=== PATIENT | female | born 2000 | race Caucasian/White ===

== ENCOUNTER 2022-05-28 13:40 | Outpatient (CLI) | payer OTHER ==
[~2022-05-28] VITALS: Ht 170.2 cm; Wt 152.7 kg
[2022-05-28] MEDS ORDERED: PRENTAB9 PO (13:54)
[2022-05-28 14:03] VITALS: BP 129/75
== END 2022-05-28 15:30 | disposition home or self-care (01) ==
LOC: M LDO 13:40
PROVIDERS: ATTEND Registered Nurse
DX: O36.8130 Decreased fetal movements, third trimester, not applicable or unspecified (principal); Z3A.38 38 weeks gestation of pregnancy; Z88.1 Allergy status to other antibiotic agents
CPT/HCPCS: 59025; 76815; 76819; 76820; G0378; G0463

== ENCOUNTER 2022-06-03 15:18 | Outpatient (CLI) | payer OTHER ==
[~2022-06-03] VITALS: Ht 170.2 cm; Wt 153.4 kg
[~2022-06-03 15:18] MED LIST: PRENTAB9 PO
[2022-06-03] MEDS ORDERED: ACET-683 PO (15:44)
[2022-06-03 15:52] VITALS: BP 141/80
[2022-06-03] MEDS ORDERED: METOCLOPRAMIDE 10MG TAB PO ONE (16:35)
[2022-06-03] MEDS ORDERED: diphenhydrAMINE 25MG CAP PO ONE ×2 (16:35→18:55)
[2022-06-03 16:53] VITALS: BP 138/80
[2022-06-03 16:55] LABS: MEAN CORPUSCULAR HEMOGLOBIN 30.7 pg (27.0-33.0); MEAN CORPUSCULAR HGB CONC 33.3 g/dl (32.0-36.5); MEAN CORPUSCULAR VOLUME 92.1 fl (80.0-96.0); PLATELET COUNT, AUTOMATED 282 10^3/uL (150-450); RED BLOOD COUNT 3.91 10^6/uL (4.00-5.40); WHITE BLOOD COUNT 11.6 10^3/uL (4.0-10.0)
[2022-06-03 17:44] LABS: ALBUMIN 2.4 G/DL (3.2-5.2); ALT/SGPT 12 U/L (7.0-40); ALT/SGPT 13 U/L (7.0-40); BILIRUBIN,TOTAL 0.3 MG/DL (0.3-1.2); BLOOD UREA NITROGEN 8 MG/DL (9-23); CALCIUM LEVEL 8.5 MG/DL (8.5-10.1); CARBON DIOXIDE LEVEL 24 MMOL/L (20-31); CHLORIDE LEVEL 103 MMOL/L (98-107); GLUCOSE, FASTING 84 MG/DL (60-100); LDH LACTATE DEHYDROGENASE 171 U/L (120-246); POTASSIUM SERUM 4.1 MMOL/L (3.5-5.1); SODIUM LEVEL 136 MMOL/L (136-145); TOTAL PROTEIN 5.9 G/DL (5.7-8.2); URIC ACID 4.5 MG/DL (3.1-7.8)
[2022-06-03 18:01] VITALS: BP 125/72
[2022-06-03 18:08] LABS: APPEARANCE, URINE MANUAL CLEAR (CLEAR); BILIRUBIN, URINE MANUAL NEGATIVE (NEGATIVE); BLOOD URINE MANUAL TRACE (NEGATIVE); COLOR, URINE MANUAL YELLOW (YELLOW); GLUCOSE, URINE (UA) MANUAL NEGATIVE (NEGATIVE); KETONE, URINE MANUAL NEGATIVE (NEGATIVE); LEUKOCYTE ESTERASE, URINE MAN TRACE (NEGATIVE); NITRITE, URINE MANUAL NEGATIVE (NEGATIVE); PROTEIN, URINE MANUAL TRACE mg/dL (NEGATIVE); SPECIFIC GRAVITY,URINE MANUAL 1.005 (1.002-1.035); UROBILINOGEN, URINE MANUAL NORMAL (NORMAL)
[2022-06-03 18:21] LABS: RBC, URINE 0-1 /hpf (0-3); SQUAMOUS EPITHELIAL CELL URINE SMALL AMOUNT /hpf (SMALL AMT)
[2022-06-03 18:22] LABS: BACTERIA, URINE SMALL AMOUNT; HYALINE CAST, URINE NONE SEEN /lpf (0-1)
[2022-06-03 18:47] VITALS: BP 115/60
[2022-06-03] MEDS ORDERED: BUTORPHANOL 2 MG/ML INJ (J0595) IV ONE (18:55)
== END 2022-06-03 20:07 | disposition home or self-care (01) ==
LOC: M LDO 15:18
PROVIDERS: ATTEND Obstetrics & Gynecology
DX: O26.893 Other specified pregnancy related conditions, third trimester (principal); R51.9 Headache, unspecified; Z3A.39 39 weeks gestation of pregnancy; Z88.1 Allergy status to other antibiotic agents
CPT/HCPCS: 36415; 59025; 76815; 80053; 81000; 81015; 82247; 82565; 83615; 84450; 84460; 84550; 85027; 96374; G0463; J0595

== ENCOUNTER 2022-06-04 08:05 | Inpatient (IN) | payer OTHER ==
[~2022-06-04] VITALS: Ht 170.2 cm; Wt 153.4 kg
[2022-06-04] VITALS (40 sets, daily range): BP systolic 97–158; BP diastolic 53–94
[~2022-06-04 08:05] MED LIST changes: +ACET-683 PO
[2022-06-04] MEDS ORDERED: miSOPROStol 25MCG 1/4 TABLET PV ONE (09:00)
[2022-06-04] MEDS ORDERED: OXYTOCIN DRIP 30 UNITS in IV 1 EA IV SCH ×4 (09:05)
[2022-06-04] MEDS ORDERED: TRANEXAMIC ACID INJection 1,000 MG in NS 100 ML IV PRN (09:05)
[2022-06-04] MEDS ORDERED: OXYTOCIN INJ 10 UNITS/ML VIAL (J2590) IM PRN (09:05)
[2022-06-04] MEDS ORDERED: LIDOCAINE 1% MDV 20ML VIAL INFIL PRN (09:05)
[2022-06-04] MEDS ORDERED: METHYLERGONOVINE MALEATE 0.2 MG/ML VIAL (J2210) IM PRN (09:05)
[2022-06-04] MEDS ORDERED: OXYTOCIN INJ 10 UNITS/ML VIAL (J2590) IV PRN (09:05)
[2022-06-04] MEDS ORDERED: CARBOPROST TROMETHAMINE 250 MCG/ML AMP IM PRN (09:05)
[2022-06-04] MEDS ORDERED: OXYTOCIN DRIP 30 UNITS in IV 1 EA IV PRN ×6 (09:05)
[2022-06-04] MEDS ORDERED: ALBUTEROL 90 MCG/ACT 8GM HFA INHALER INH PRN (10:25)
[2022-06-04] MEDS: LR 1,000 ML IV SCH ×3 (13:40→22:41)
[2022-06-04] MEDS ORDERED: EPIDURAL/PCA KEYS XX PRN (17:05)
[2022-06-04] MEDS ORDERED: FENTANYL 2MCG/ML ROPIVACAINE 0.2% IN 0.9% NACL 100ML IVBAG As Ordered ONE (17:05)
[2022-06-04] MEDS ORDERED: NALOXONE INJ 0.4MG/1ML VIAL (J2310 PER 1MG) IV PRN (17:05)
[2022-06-04] MEDS ORDERED: ONDANSETRON 4MG 2ML VIAL IV PRN (17:05)
[2022-06-04] MEDS ORDERED: ePHEDrine SULFATE 25 MG/5 ML(5MG/ML) SYRINGE IVP PRN (17:05)
[2022-06-04] MEDS ORDERED: diphenhydrAMINE 50MG/ML VIAL IV PRN (17:05)
[2022-06-04] MEDS ORDERED: LR 500 ML IV PRN (17:05)
[2022-06-04] MEDS ORDERED: FENTANYL/ROPIVACAINE/NACL BAG 100 ML EPIDURAL SCH (17:05)
[2022-06-05] VITALS (21 sets, daily range): BP systolic 100–246; BP diastolic 56–132
[2022-06-05] MEDS: ACETAMINOPHEN 500 MG TAB PO SCH ×3 (06:00→18:13)
[2022-06-05] MEDS: IBUPROFEN 800 MG TAB PO SCH ×3 (06:00→22:51)
[2022-06-05] MEDS ORDERED: OXYTOCIN DRIP 30 UNITS in IV 1 EA IV SCH (06:45)
[2022-06-05] MEDS ORDERED: DIBUCAINE 1% OINTMENT 30GM TOP PRN (06:45)
[2022-06-05] MEDS ORDERED: ONDANSETRON 4MG 2ML VIAL IV PRN (06:45)
[2022-06-05] MEDS ORDERED: PROMETHAZINE 25 MG TAB PO PRN (06:45)
[2022-06-05] MEDS ORDERED: DOCUSATE SODIUM 100MG CAPSULE PO PRN (06:45)
[2022-06-05] MEDS ORDERED: RHOGAM 300 MCG (1500 IU) INJ (J2790) IM SCH (06:45)
[2022-06-05] MEDS ORDERED: METHYLERGONOVINE MALEATE 0.2 MG/ML VIAL (J2210) IM PRN (06:45)
[2022-06-05] MEDS: LR 1,000 ML IV SCH ×2 (06:45→14:45)
[2022-06-05] MEDS ORDERED: OXYTOCIN 30 UNITS IN 0.9% NaCl 500ML IV BAG (J2590) As Ordered ONE (06:47)
[2022-06-05 06:56] LABS: CORD GAS ABE A -4.7; CORD GAS ABE V -2.6; CORD GAS HCO3 A 24.1 MEQ/L; CORD GAS HCO3 V 24.2 MEQ/L; CORD GAS O2 SAT A 31.6 %; CORD GAS O2 SAT V 64.2 %; CORD GAS PCO2 A 59.2 mmHg; CORD GAS PCO2 V 49.3 mmHg; CORD GAS PH A 7.227 UNITS; CORD GAS PH V 7.309 UNITS; CORD GAS PO2 V 26.1 mmHg; CORD GAS SBC A 18.9 MEQ/L; CORD GAS SBC V 21.4 MEQ/L; CORD GAS TCO2 A 25.9 MEQ/L; CORD GAS TCO2 V 25.7 MEQ/L
[2022-06-05] MEDS: PRENATAL VITAMINS CHEWABLE TABLET PO SCH (09:00)
[2022-06-06] MEDS: ACETAMINOPHEN 500 MG TAB PO SCH ×3 (04:50→12:02)
[2022-06-06] MEDS: IBUPROFEN 800 MG TAB PO SCH ×2 (05:50→14:02)
[2022-06-06 06:00] VITALS: BP 130/67
[2022-06-06 07:50] LABS: HEMATOCRIT 36.8 % (36.0-47.0); HEMOGLOBIN 11.9 g/dl (12.0-15.5); MEAN CORPUSCULAR HEMOGLOBIN 30.6 pg (27.0-33.0); MEAN CORPUSCULAR HGB CONC 32.3 g/dl (32.0-36.5); MEAN CORPUSCULAR VOLUME 94.6 fl (80.0-96.0); PLATELET COUNT, AUTOMATED 277 10^3/uL (150-450); RED BLOOD COUNT 3.89 10^6/uL (4.00-5.40); WHITE BLOOD COUNT 15.1 10^3/uL (4.0-10.0)
[2022-06-06] MEDS: PRENATAL VITAMINS CHEWABLE TABLET PO SCH (07:59)
[2022-06-07] MEDS ORDERED: MEASLES,MUMPS,RUBELLA VACCINE INJ (MMR-II) (90707) SC.IMMUN ONE (09:00)
== END 2022-06-06 17:33 | disposition home or self-care (01) | DRG 805 ==
LOC: M LDI 08:05 → M OBS 06-05 08:39
PROVIDERS: ADMIT Advanced Practice Midwife; ATTEND Obstetrics & Gynecology
PROC: 0HQ9XZZ Repair Perineum Skin, External Approach (ICD-10-PCS; 2022-06-04)
PROC: 10907ZC Drainage of Amniotic Fluid, Therapeutic from Products of Conception, Via Natural or Artificial Opening (ICD-10-PCS; 2022-06-04)
PROC: 3E0P7GC Introduction of Other Therapeutic Substance into Female Reproductive, Via Natural or Artificial Opening (ICD-10-PCS; 2022-06-04)
PROC: 10E0XZZ Delivery of Products of Conception, External Approach (ICD-10-PCS; principal; 2022-06-05)
DX: O99.214 Obesity complicating childbirth (principal); Z37.0 Single live birth; U07.1 COVID-19; O98.52 Other viral diseases complicating childbirth; Z3A.39 39 weeks gestation of pregnancy; E66.01 Morbid (severe) obesity due to excess calories; O69.81X0 Labor and delivery complicated by cord around neck, without compression, not applicable or unspecified; O70.0 First degree perineal laceration during delivery; O99.344 Other mental disorders complicating childbirth; F32.A Depression, unspecified